=== PATIENT | male | born 1975 | race Caucasian/White ===

== ENCOUNTER 2017-03-31 09:03 | Emergency (ER) | payer BC ==
[~2017-03-31] VITALS: Ht 172.7 cm; Wt 77.0 kg
[~2017-03-31 09:03] MED LIST: HYDROCODONE
[2017-03-31] MEDS ORDERED: FAMOTIDINE 20MG/2ML VIAL IV STA (09:42)
[2017-03-31] MEDS ORDERED: LORAZEPAM 2MG/ML CPJ IV ONE (09:45)
[2017-03-31 11:00] VITALS: BP 123/69
== END 2017-03-31 11:10 | disposition home or self-care (01) ==
LOC: ER 09:03
DX: K21.9 Gastro-esophageal reflux disease without esophagitis (principal); F41.0 Panic disorder [episodic paroxysmal anxiety]; Z88.0 Allergy status to penicillin
CPT/HCPCS: 96374; 96375; 99284; J2060; J3490; Z7610